=== PATIENT | female | born 1975 | race Caucasian/White ===

== ENCOUNTER 2018-03-14 16:38 | Emergency (ER) | payer OTHER ==
[~2018-03-14] VITALS: Ht 170.2 cm; Wt 71.7 kg
[2018-03-14 16:44] VITALS: BP 151/97
--- NOTE | 2018-03-14 18:17 | ED GENERAL ADULT ---
History of Present Illness General Chief Complaint: General Adult Stated Complaint: PT BARTHOLIN CYST Source: patient Exam Limitations: no limitations Vital Signs & Intake/Output Vital Signs & Intake/Output Vital Signs Date Time Temp Pulse Resp B/P B/P Pulse O2 O2 Flow FiO2 Mean Ox Delivery Rate 03/14 1644 99.5 116 18 151/97 99 Room Air Allergies Coded Allergies: ibuprofen (UNKNOWN 03/14/18) Reconcile Medications Oxycodone HCl/Acetaminophen (Percocet 5-325 MG Tablet) 5 MG-325 MG TABLET 1 TAB PO Q4 HRS NEEDED PRN pain Sulfamethoxazole/Trimethoprim (Bactrim Ds Tablet) 800 MG-160 MG TABLET 1 TAB PO BID cellulitis Triage Note: 42F TO ED W BARTHOLIN CYST THAT SHE REPORTS WAS OF SUDDEN ONSET THIS MORNING AND HAS SINCE TRIPLED IN SIZE. +CHILLS, LOWGRADE IN TRIAGE 99.5. UNABLE TO SIT COMFORTABLY. DENIES DRAINAGE. HX OF SAME. Triage Nurses Notes Reviewed? yes Onset: Gradual Duration: hour(s): Timing: constant : No Patient currently breastfeeds: No HPI: 42-year-old female with a history of GERD, H pylori, and recurrent left Bartholin's cyst presenting with pain and swelling to her left labia since this morning. Patient reports that she has been trying to soak the area, but her symptoms have been progressively worsening. Patient states that she thinks it is a recurrent Bartholin's cyst, but that her symptoms feel significantly different than they have in the past, states that in the past her entire labia did not swell. Patient had called her [facility] who instructed her to come to the emergency department for evaluation. She denies fevers, nausea, vomiting, or drainage from the area. Denies any vaginal trauma. (Purnima Castelan) Past History Travel History Traveled to [place] past 21 day No Medical History Any Pertinent Medical History? see below for history Neurological: NONE EENT: NONE Cardiovascular: NONE Respiratory: NONE Gastrointestinal: GERD, H.PYLORI HIATAL HERNIA PEPTIC ULCER Hepatic: NONE Renal: NONE Musculoskeletal: NONE Psychiatric: NONE Endocrine: NONE Surgical History Surgical History: non-contributory Psychosocial History What is your primary language Sammarinese Tobacco Use: Never used Family History Hx Contributory? No (Purnima Castelan) Review of Systems Review of Systems Constitutional: Reports: no symptoms. EENTM: Reports: no symptoms. Respiratory: Reports: no symptoms. Cardiovascular: Reports: no symptoms. GI: Reports: no symptoms. Genitourinary: Reports: see HPI. Musculoskeletal: Reports: no symptoms. Skin: Reports: no symptoms. Neurological/Psychological: Reports: no symptoms. Hematologic/Endocrine: Reports: no symptoms. Immunologic/Allergic: Reports: no symptoms. All Other Systems: Reviewed and Negative (Purnima Castelan) Physical Exam Physical Exam General Appearance: well developed/nourished, no apparent distress, alert, awake Head: atraumatic, normal appearance Eyes: Bilateral: normal appearance. Neck: normal inspection Respiratory: normal breath sounds, lungs clear Cardiovascular: regular rate/rhythm Gastrointestinal: soft, non-tender Back: normal inspection Extremities: normal inspection Neurologic/Psych: awake, alert, oriented x 3, normal gait, normal mood/affect Skin: intact, normal color, warm/dry Comments: on genital exam the left labia minora is significantly edematous and tender to palpations, there is fluctuance closer to the vaginal opening that tracts into the bartholin gland, and induration to the distal labia. No active drainage. Core Measures ACS in differential dx? No CVA/TIA Diagnosis: No Sepsis Present: No Sepsis Focused Exam Completed? No (Purnima Castelan) Progress Differential Diagnoses I considered the following diagnoses in my evaluation of the patient: [Bartholin 's gland cyst versus Bartholin's gland abscess versus cellulitis versus folliculitis versus labial cellulitis] Plan of Care: I&D was attempted without any purulent drainage being expressed. Patient seen and evaluated with Dr. Vera from [facility]. Will place the patient on a course of Bactrim, and she will follow up with her [employer] [facility] on Friday for reevaluation. Patient counseled on supportive care and strict return precautions. Initial ED EKG: none (Purnima Castelan) Departure Departure Disposition: HOME OR SELF CARE Condition: Stable Clinical Impression Primary Impression: Cellulitis of labia Referrals: Unknown (PCP/Family) Additional Instructions: Take Bactrim as prescribed, and use Percocet as needed for pain. Follow-up with your [facility] for reevaluation. Return to the emergency department for any new or worsening symptoms. Departure Forms: Customer Survey General Discharge Information Prescriptions: Current Visit Scripts Sulfamethoxazole/Trimethoprim (Bactrim Ds Tablet) 1 TAB PO BID #20 TAB Oxycodone HCl/Acetaminophen (Percocet 5-325 MG Tablet) 1 TAB PO Q4 HRS NEEDED PRN pain #12 TAB (Purnima Castelan) PA/WHEAT INSPECTOR Co-Sign Statement Statement: ED Attending supervision documentation- [] I saw and evaluated the patient. I have also reviewed all the pertinent lab results and diagnostic results. I agree with the findings and the plan of care as documented in the PA's/WHEAT INSPECTOR's documentation. [x] I have reviewed the ED Record and agree with the PA's/WHEAT INSPECTOR's documentation. [] Additions or exceptions (if any) to the PAs/WHEAT INSPECTOR's note and plan are summarized below: [] (Johan MARTINEZ,Ruddy Noel) Procedures Incision and Drainage Site: left labia Blade Size: 11 I & D Procedure: Yes: betadine prep. Progress: stab incision scant bloody drainage, no purulent drainage (Purnima Castelan) Critical Care Note Critical Care Note Critical Care Time: non-applicable (Purnima Castelan) ED Attending Observation Initial Observation Note: I have seen and personally examined JOE LONG on 03/14/18 at 2112. I agree with the current emergency department documentation. The disposition (admission or discharge) is uncertain at this time, she needs a period of observation for the following reason(s): The ED Nurse caring for this patient has been personally informed as to what the patient is being observed for. (Purnima Castelan)
[2018-03-14] MEDS ORDERED: BACTRIM DS TAB1 EACH PO (19:10)
[2018-03-14] MEDS ORDERED: PERCOCET 5-3251 EACH PO (19:10)
== END 2018-03-14 19:18 ==
LOC: ERH 16:38
DX: N76.2 Acute vulvitis (principal)
CPT/HCPCS: J2001